=== PATIENT | male | born 1955 | race Caucasian/White ===

== ENCOUNTER 2018-11-22 16:37 | Inpatient (IN) | payer BC, MEDICARE ==
[2018-11-22 17:12] LABS: #Basophils 0.1 thou/uL (0.0-0.2); #Eosinphils 0.5 thou/uL (0.0-0.7); #Lymphocytes 3.7 thou/uL (1.20-3.40); #Monocytes 0.7 thou/uL (0.11-0.59); %Basophils 1.2 % (0.0-1.0); %Eosinophils 5.3 % (0.0-10.0); %Lymphocytes 40.9 % (21.0-51.0); %Neutrophils 44.6 % (42.0-75.0); Hemoglobin 13.1 g/dL (14.0-18.0); Mean Corpuscular HGB CONC 34.1 g/dL (32.0-36.0); Mean Corpuscular Hemoglobin 31.7 pg (27.0-31.0); Mean Platelet Volume 6.6 fL (7.4-10.4); Platelet Count 215 thou/uL (130-400); RBC Distribution Width 12.1 % (11.5-14.5); Red Blood Cell (RBC) Count 4.12 mill/uL (4.70-6.10); White Blood Cell (WBC) Count 8.9 thou/uL (4.8-10.8)
[2018-11-22 17:26] LABS: ALT (SGPT) 19 U/L (8-55); AST (SGOT) 15 U/L (5-34); Acetaminophen Less than 6.0 mcg/mL (10.0-30.0); Alcohol Less than 10 mg/dL (Less than 10); Alkaline Phosphatase 39 U/L (40-150); Anion Gap 12 mmol/L (10-20); BUN (Urea Nitrogen) 8 mg/dL (8.4-25.7); Bilirubin, Total 0.3 mg/dL (0.2-1.2); Calc. Creatinine Clearance 0 mL/min (70-130); Calcium 9.2 mg/dL (7.8-10.44); Carbon Dioxide 28 mmol/L (23-31); Chloride 103 mmol/L (98-107); Estimated GFR-MDRD Greater than 90; Globulin 2.3 g/dL (2.4-3.5); Glucose 102 mg/dL (80-115); Potassium 4.3 mmol/L (3.5-5.1); Protein, Total 6.3 g/dL (5.8-8.1); Salicylate Less than 8.0 mg/dL (15.0-30.0); Sodium 139 mmol/L (136-145)
[2018-11-22] MEDS ORDERED: Naloxone HCl 0.4 mg/ml Vial ONE ×2 (17:36→18:31)
[2018-11-22] MEDS ORDERED: Ondansetron ODT 4 MG TAB PO PRN (20:16)
[2018-11-22] MEDS ORDERED: Acetaminophen 650 MG Suppository PR PRN (20:16)
[2018-11-22] MEDS ORDERED: Ondansetron PF 4 MG/2 ML Vial IVP PRN (20:16)
[2018-11-22] MEDS ORDERED: Acetaminophen 325 MG TAB PO PRN (20:16)
[2018-11-22] MEDS ORDERED: HumaLOG 300 UNITS/3 ML VIAL SC PRN (21:01)
[2018-11-22] MEDS ORDERED: Dextrose 5% in Water 1,000 ML IV PRN (21:01)
[2018-11-22] MEDS ORDERED: Dextrose 50% Abboject 50 ML SYRINGE SLOW IVP PRN (21:01)
[2018-11-22 21:24] VITALS: BMI 28.2
--- NOTE | 2018-11-22 21:29 | HP ---
PRIMARY CARE DOCTOR: Trevon Lemus MD CODE STATUS: Full code. TIME OF EVALUATION: 07:50 p.m. CHIEF COMPLAINT: Suicidal attempt with overdose on divalproex and Valium. HISTORY OF PRESENT ILLNESS: This is a 63-year-old male patient with past medical history of depression, multiple suicidal attempts and psych admissions in the past. The patient had been admitted to an inpatient psych unit and was discharged a week ago. The patient was doing well, but today the reported that the patient was depressed and was upset and not willing to do things at home with her and when she returned back home, she realized that he was not responding the same. He told her he had taken around 40-50 pills of divalproex and also Valium. During my examination, the patient is over-sedated, still able to wake up and communicative. Vital signs within normal limits. . REVIEW OF SYSTEMS: Unable to obtain as patient is not cooperative due to sedation. PAST MEDICAL HISTORY: Hypertension, hyperlipidemia, diabetes type 2, and asthma. PAST SURGICAL HISTORY: No surgical history. PSYCHIATRIC HISTORY: Depression and suicidal attempts in the past and multiple psych admissions. SOCIAL HISTORY: The patient uses tobacco. No drugs. No alcohol. FAMILY HISTORY: Reviewed and noncontributory for current presentation. ALLERGIES: KNOWN ALLERGIES TO PENICILLIN. REPORTED MEDICATIONS: Depakote ER. PHYSICAL EXAMINATION: VITAL SIGNS: On presentation, blood pressure 129/76 with heart rate 86, respiratory rate was 16. Pain 0/10. Oxygen saturation was 96% on room air. GENERAL: , able to be aroused with voice and deep pain stimulation. HEENT: Eyes, normal conjunctivae. Moist oral mucosa. Anicteric. No JVD. RESPIRATORY: Bilateral air entry. No rales. No wheezes. Symmetric expansion. CARDIOVASCULAR: Normal rate and regular rhythm. No murmurs. No gallop. No edema. ABDOMEN: Soft. Normal bowel sounds. MUSCULOSKELETAL: Baseline range of motion and strength. SKIN: Warm and intact. No pallor. No rash. No redness. Capillary refill seems to be intact. NEUROLOGIC: Unable to fully explore. The patient is over-sedated. There is no evidence of any new focal weakness. PSYCH: Unable to explore. The patient has suicidal ideation and attempt. DIAGNOSTIC DATA: EKG was reviewed. The patient has normal sinus rhythm with a rate of 81, VT 150, QRS 80, QT corrected 420. LABORATORY DATA: Reviewed. The patient has white count 8.9, hemoglobin 13.1, MCV 93, platelet count 215. Chemistry; sodium 139, potassium 4.3, chloride 103, carbon dioxide 28, anion gap 12, BUN 8, creatinine 0.8, GFR greater than 90, glucose 102. Lactic acid 1.7. LFTs were negative. Salicylates less than 8. Acetaminophen less than 6, valproic acid 107 and it was high, and plasma alcohol level less than 10. ASSESSMENT AND PLAN: The patient will be placed in the hospital with following medical problems: Critical care time more than 35 minutes spent at bedside counseling with the patient's , the patient's evaluation, medication reconciliation, and stabilization of the patient. 1. Acute encephalopathy secondary to drug overdose. The patient is still protecting airways. We will monitor in IMCU, if these changes and the patient is at risk for aspiration, may need intervention if the get more sedated. 2. Suicidal attempt. This is not the first time the patient had this problem. Once clinically stable, he will need psych evaluation and treatment. 3. Overdose with benzodiazepine and divalproex. Poison Control has been called. We will need to monitor the patient overnight and give supportive care. 4. Hyperlipidemia. Low-cholesterol diet is advised, reconcile home medications. 5. Diabetes, reconcile home medications and will place the patient on sliding scale for optimal control. 6. Deep venous thrombosis prophylaxis. Job ID: [id number]
[2018-11-23 02:24] LABS: Hemoglobin 13.2 g/dL (14.0-18.0); Mean Corpuscular HGB CONC 34.5 g/dL (32.0-36.0); Mean Corpuscular Hemoglobin 32.1 pg (27.0-31.0); Mean Corpuscular Volume 93.1 fL (78.0-98.0); Mean Platelet Volume 6.8 fL (7.4-10.4); Platelet Count 205 thou/uL (130-400); RBC Distribution Width 12.1 % (11.5-14.5); White Blood Cell (WBC) Count 7.6 thou/uL (4.8-10.8)
[2018-11-23] MEDS: Sodium Chloride 0.9% 1,000 ML IV SCH ×4 (02:33→21:17)
[2018-11-23 02:50] LABS: Anion Gap 14 mmol/L (10-20); BUN (Urea Nitrogen) 8 mg/dL (8.4-25.7); Calc. Creatinine Clearance 121 mL/min (70-130); Carbon Dioxide 26 mmol/L (23-31); Chloride 106 mmol/L (98-107); Estimated GFR-MDRD Greater than 90; Glucose 92 mg/dL (80-115); Potassium 4.1 mmol/L (3.5-5.1); Sodium 142 mmol/L (136-145)
[2018-11-23 03:00] LABS: Band 2 % (5-11); Eosinophils 10 % (0-10); Lymphocytes 57 % (21-51); MDiff Complete? YES; Monocytes 5 % (0-10); Neutrophil 26 % (42-75)
[2018-11-23] MEDS: Enoxaparin Sodium 40 MG/0.4 ML SYRINGE SC SCH (08:39)
--- NOTE | 2018-11-23 09:42 | PDOC.PN ---
- Subjective Encounter Start Date: 11/23/18 Encounter Start Time: 09:30 Subjective: f/u for SI with Depakote OD. Recent admit to [facility] -: Unit for same. No new complaints. Nursing reports pt sleeping. - Objective Resuscitation Status - Order Detail: 11/22/18 20:16 Resuscitation Status Routine Resuscitation Status: FULL: Full Resuscitation MAR Reviewed: Yes Vital Signs & Weight: Vital Signs (12 hours) Temp Pulse Resp BP Pulse Ox 11/23/18 07:50 98 11/23/18 05:27 97.8 F 82 16 150/80 H 98 11/23/18 00:00 96.9 F L 73 20 107/67 97 11/22/18 22:10 97 11/22/18 22:00 97.7 F 75 16 100/62 96 Weight Weight 196 lb 8 oz Most Recent Monitor Data Heart Rate from ECG 89 NIBP 141/100 NIBP BP-Mean 113 Respiration from ECG 21 SpO2 90 I&O: 11/22/18 11/23/18 11/24/18 06:59 06:59 06:59 Intake Total 510 Output Total 300 Balance 210 Result Diagrams: 11/23/18 02:16 11/23/18 02:16 Additional Labs: Accuchecks 11/23/18 11/23/18 11/22/18 05:24 00:46 22:38 POC Glucose 92 91 87 Laboratory Tests 11/22/18 11/22/18 11/22/18 17:01 17:01 17:03 Lactic Acid Ammonia TSH 3rd Generation 1.3664 Valproic Acid 107.7 H Plasma Alcohol Less than 10 11/22/18 11/22/18 11/22/18 17:03 17:20 22:15 Lactic Acid 1.7 Ammonia 27 TSH 3rd Generation Valproic Acid 106.9 H Plasma Alcohol 11/23/18 11/23/18 02:16 05:55 Lactic Acid Ammonia TSH 3rd Generation Valproic Acid 113.3 H 107.7 H Plasma Alcohol EKG Reviewed by me: Yes (Tele - SR) Phys Exam - Physical Examination Constitutional: NAD sleepy, awakes to name and answers questions HEENT: PERRLA, sclera anicteric, oral pharynx no lesions Neck: no nodes, no JVD, supple, full ROM Respiratory: no wheezing, no rales, no rhonchi, clear to auscultation bilateral S1, S2 Cardiovascular: RRR, no significant murmur, no rub, gallop Gastrointestinal: soft, non-tender, no distention, positive bowel sounds Musculoskeletal: no edema, pulses present Neurological: normal sensation, moves all 4 limbs Skin: normal turgor, cap refill <2 seconds Dx/Plan (1) Suicide attempt Status: Acute Comment: Depakote overdose with serial monitoring of valproic acid levels, recurrent attempts at suicide, [facility]MR consult, inpt psych transfer when stable, 1:1 observation (2) Toxic metabolic encephalopathy Code(s): G92 - TOXIC ENCEPHALOPATHY Status: Acute Comment: Secondary to Depakote OD, serial monitoring, see above #1 (3) Severe depression Code(s): F32.2 - MAJOR DEPRESSV DISORD, SINGLE EPSD, SEV W/O PSYCH FEATURES Status: Chronic Comment: MR evaluation when stabilizing, resume Risperdal, Cymbalta (4) Diabetes mellitus type II, controlled Code(s): E11.9 - TYPE 2 DIABETES MELLITUS WITHOUT COMPLICATIONS Status: Chronic Comment: ISS, resume ADA diet, hold Metformin another 24h, start Januvia, Amaryl (5) HTN (hypertension) Code(s): I10 - ESSENTIAL (PRIMARY) HYPERTENSION Status: Chronic Qualifiers: Hypertension type: essential hypertension Qualified Code(s): I10 - Essential (primary) hypertension Comment: Resume Norvasc, serial BP monitoring - Plan licensed master social worker, out of bed/ambulate, DVT proph w/SCDs Continue supportive mgmt -: Continue low-volume IVF's -: MR consult for inpt psych coordination -: Resume home DM regimen -: AM lab: BMP, CBC * .
[2018-11-23] MEDS: Pravastatin Sodium 20 MG TAB PO SCH ×2 (21:12→21:23)
[2018-11-23] MEDS: DULoxetine 60 MG CAP PO SCH ×2 (21:12→21:22)
[2018-11-23] MEDS: risperiDONE 1 MG TAB PO SCH ×2 (21:16→21:22)
[2018-11-24 06:04] LABS: Anion Gap 10 mmol/L (10-20); BUN (Urea Nitrogen) 10 mg/dL (8.4-25.7); Calc. Creatinine Clearance 122 mL/min (70-130); Calcium 8.5 mg/dL (7.8-10.44); Carbon Dioxide 27 mmol/L (23-31); Chloride 105 mmol/L (98-107); Estimated GFR-MDRD Greater than 90; Glucose 91 mg/dL (80-115); Potassium 4.1 mmol/L (3.5-5.1); Sodium 138 mmol/L (136-145)
[2018-11-24 06:11] LABS: Band 3 % (5-11); Eosinophils 11 % (0-10); Hemoglobin 13.1 g/dL (14.0-18.0); Lymphocytes 34 % (21-51); MDiff Complete? YES; Mean Corpuscular HGB CONC 34.3 g/dL (32.0-36.0); Mean Corpuscular Hemoglobin 31.9 pg (27.0-31.0); Mean Corpuscular Volume 92.9 fL (78.0-98.0); Mean Platelet Volume 6.7 fL (7.4-10.4); Monocytes 6 % (0-10); Neutrophil 39 % (42-75); Platelet Count 200 thou/uL (130-400); RBC Distribution Width 12.1 % (11.5-14.5); Reactive Lymphocytes 7 % (0-10); White Blood Cell (WBC) Count 6.2 thou/uL (4.8-10.8)
[2018-11-24] MEDS: Sodium Chloride 0.9% 1,000 ML IV SCH (06:37)
[2018-11-24] MEDS ORDERED: Glimepiride 1 MG TAB PO SCH (08:00)
[2018-11-24] MEDS ORDERED: Aspirin Chewable 81 MG TAB PO SCH (09:00)
[2018-11-24] MEDS ORDERED: Alogliptin 25 MG TAB PO SCH (09:00)
[2018-11-24] MEDS ORDERED: Amlodipine 10 MG TAB PO SCH (09:00)
[2018-11-24] MEDS: risperiDONE 1 MG TAB PO SCH ×2 (10:56→20:53)
[2018-11-24] MEDS: DULoxetine 60 MG CAP PO SCH ×2 (10:57→20:53)
[2018-11-24] MEDS: Enoxaparin Sodium 40 MG/0.4 ML SYRINGE SC SCH (10:57)
--- NOTE | 2018-11-24 13:12 | PDOC.PN ---
- Subjective Encounter Start Date: 11/24/18 Encounter Start Time: 13:10 Wants to go home. Not happy about the [facility]MR consult. - Objective Resuscitation Status - Order Detail: 11/22/18 20:16 Resuscitation Status Routine Resuscitation Status: FULL: Full Resuscitation Vital Signs & Weight: Vital Signs (12 hours) Temp Pulse Resp BP BP Pulse Ox 11/24/18 10:55 86 146/80 H 11/24/18 07:24 97.7 F 86 16 146/80 H 94 L 11/24/18 03:58 97.7 F 78 18 123/78 92 L Weight Weight 196 lb 8 oz Most Recent Monitor Data Heart Rate from ECG 82 NIBP 141/100 NIBP BP-Mean 113 Respiration from ECG 14 SpO2 90 I&O: 11/23/18 11/24/18 11/25/18 06:59 06:59 06:59 Intake Total 510 2137 Output Total 300 950 Balance 210 1187 Result Diagrams: 11/24/18 05:34 11/24/18 05:34 Additional Labs: Accuchecks 11/24/18 11/24/18 11/23/18 10:54 03:57 21:00 POC Glucose 153 H 86 100 11/23/18 16:02 POC Glucose 84 Phys Exam - Physical Examination Patient refused the exam and told me to leave the room. Dx/Plan (1) Suicide attempt Status: Acute Comment: Depakote overdose with serial monitoring of valproic acid levels, recurrent attempts at suicide, MR consult, inpt psych transfer when stable, 1:1 observation (2) Toxic metabolic encephalopathy Code(s): G92 - TOXIC ENCEPHALOPATHY Status: Acute Comment: Secondary to Depakote OD, serial monitoring, see above #1 (3) Diabetes mellitus type II, controlled Code(s): E11.9 - TYPE 2 DIABETES MELLITUS WITHOUT COMPLICATIONS Status: Chronic Comment: ISS, resume ADA diet, hold Metformin another 24h, start Junuv, Amaryl (4) HTN (hypertension) Code(s): I10 - ESSENTIAL (PRIMARY) HYPERTENSION Status: Chronic Qualifiers: Hypertension type: essential hypertension Qualified Code(s): I10 - Essential (primary) hypertension Comment: Resume Norvasc, serial BP monitoring (5) Severe depression Code(s): F32.2 - MAJOR DEPRESSV DISORD, SINGLE EPSD, SEV W/O PSYCH FEATURES Status: Chronic Comment: MHMR evaluation when stabilizing, resume Risperdal, Cymbalta (6) Overdose Code(s): T50.901A - POISONING BY UNSP DRUG/MEDS/BIOL SUBST, ACCIDENTAL, INIT Status: Acute - Plan * Depakote OD in suicide attempt. * Depakote levels peaked at 113 and then started to decline. * Levels were not terribly high. * He is medically stable and cleared for discharge. * [facility]MR pending.
[2018-11-24] MEDS: Pravastatin Sodium 20 MG TAB PO SCH (20:53)
[2018-11-24] MEDS ORDERED: Melatonin 3 MG TAB PO SCH (22:30)
[2018-11-25 04:01] VITALS: BP 166/94; TEMP 97.8
[2018-11-25] MEDS ORDERED: Melatonin 3 MG TAB PO SCH (21:00)
== END 2018-11-25 04:40 | DRG 917 ==
LOC: ERS 16:37 → EEVIPCON 18:30 → IMCU/EMU 18:30 → T4-A 11-23 13:04
PROVIDERS: ADMIT Family Medicine; ATTEND Family Medicine
DX: T42.6X2A Poisoning by other antiepileptic and sedative-hypnotic drugs, intentional self-harm, initial encounter (principal); G92 Toxic encephalopathy; F32.9 Major depressive disorder, single episode, unspecified; I10 Essential (primary) hypertension; E78.5 Hyperlipidemia, unspecified; E11.9 Type 2 diabetes mellitus without complications; J45.909 Unspecified asthma, uncomplicated; T42.4X2A Poisoning by benzodiazepines, intentional self-harm, initial encounter; T14.91XA Suicide attempt, initial encounter; X58.XXXA Exposure to other specified factors, initial encounter; Z79.82 Long term (current) use of aspirin; Z88.0 Allergy status to penicillin; Z79.84 Long term (current) use of oral hypoglycemic drugs; Z79.899 Other long term (current) drug therapy
CPT/HCPCS: 36415; 36416; 80048; 80053; 80164; 80307; 82140; 83605; 84443; 85007; 85025; 85027; 93005; 96361; 96374; 96376; J1650; J2310

== ENCOUNTER 2020-08-17 07:52 | Outpatient (CLI) | payer MEDICARE, OTHER ==
--- NOTE | 2020-08-17 13:41 | NM ---
NUCLEAR MEDICINE BRAIN TOMOGRAPHIC IMAGING HISTORY: Tremors COMPARISON: None TECHNIQUE: A nuclear medicine tomographic scan was performed using 4.99 mCi of I-123 Ioflupane. FINDINGS: There is comma shaped uptake of the radiopharmaceutical by the basal ganglia. IMPRESSION: Unremarkable exam
== END 2020-08-17 07:53 | disposition home or self-care (01) ==
LOC: NM 07:52
PROVIDERS: ATTEND Psychiatry & Neurology Neurology
DX: G25.2 Other specified forms of tremor (principal)
CPT/HCPCS: 78803; A9584